=== PATIENT | female | born 2000 | race Caucasian/White ===

== ENCOUNTER → 2024-04-22 14:50 | Outpatient (BNVA) | payer OTHER, SELFPAY | PROVIDERS: Visit Provider Nurse Practitioner Women's Health | DX: N92.6 Irregular menstruation, unspecified (principal) | CPT/HCPCS: 82306; 83036; 83520; 83525; 84402; 84403; 84443; 85025; 86850; 86900 ==

== ENCOUNTER → 2024-04-30 14:19 | Outpatient (BNVA) | payer OTHER, SELFPAY | PROVIDERS: Visit Provider Nurse Practitioner Women's Health | DX: N92.6 Irregular menstruation, unspecified (principal) | CPT/HCPCS: 76830 ==

== ENCOUNTER → 2024-07-09 07:59 | Outpatient (BNVA) | payer OTHER, SELFPAY | PROVIDERS: Visit Provider Nurse Practitioner Women's Health | DX: N92.6 Irregular menstruation, unspecified (principal); N83.8 Other noninflammatory disorders of ovary, fallopian tube and broad ligament | CPT/HCPCS: 76830 ==

== ENCOUNTER → 2024-08-09 13:30 | Outpatient (BNVA) | payer OTHER, SELFPAY | PROVIDERS: Visit Provider Nurse Practitioner Women's Health | DX: N97.0 Female infertility associated with anovulation (principal); Z31.9 Encounter for procreative management, unspecified; E28.2 Polycystic ovarian syndrome | CPT/HCPCS: 84144 ==

== ENCOUNTER → 2024-09-19 09:50 | Outpatient (BNVA) | payer OTHER, SELFPAY | PROVIDERS: Visit Provider Nurse Practitioner Women's Health | DX: N97.0 Female infertility associated with anovulation (principal); N92.6 Irregular menstruation, unspecified; Z31.9 Encounter for procreative management, unspecified; E28.2 Polycystic ovarian syndrome | CPT/HCPCS: 84144 ==

== ENCOUNTER → 2024-11-04 15:15 | Outpatient (BNVA) | payer OTHER, SELFPAY | PROVIDERS: Visit Provider Nurse Practitioner Women's Health | DX: Z31.9 Encounter for procreative management, unspecified (principal); N97.0 Female infertility associated with anovulation | CPT/HCPCS: 84144 ==

== ENCOUNTER → 2024-11-11 13:16 | Outpatient (BNVA) | payer OTHER, SELFPAY | PROVIDERS: Visit Provider Nurse Practitioner Women's Health | DX: Z32.01 Encounter for pregnancy test, result positive (principal); N91.2 Amenorrhea, unspecified | CPT/HCPCS: 84702 ==

== ENCOUNTER → 2024-11-13 08:49 | Outpatient (BNVA) | payer OTHER, SELFPAY | PROVIDERS: Visit Provider Nurse Practitioner Women's Health | DX: N91.2 Amenorrhea, unspecified (principal) | CPT/HCPCS: 84702 ==

== ENCOUNTER → 2024-11-18 13:10 | Outpatient (BNVA) | payer OTHER, SELFPAY | PROVIDERS: Visit Provider Nurse Practitioner Women's Health | DX: Z34.90 Encounter for supervision of normal pregnancy, unspecified, unspecified trimester (principal) | CPT/HCPCS: 84702 ==

== ENCOUNTER 2024-12-09 12:45 | Outpatient (CLI) | payer OTHER, SELFPAY ==
--- NOTE | 2024-12-09 13:30 | US_ITS ---
WS: [id number] EARLY OBSTETRICAL ULTRASOUND (<14 WEEKS). HISTORY: Z32.01 - Encounter for test, result positive COMPARISON: None available. Single intrauterine gestational sac is identified. Cardiac activity at 151 BPM. [place]-rump length measures 1.2 cm which corresponds to a gestation of 7w3d. Normal-appearing yolk sac and amnion demonstrated. No subchorionic hemorrhage. No free fluid. Normal size ovaries with no mass. Ovaries are identified. No adnexal mass. US/US OB <= 14 weeks fetus [id number] IMPRESSION: 1. Single intrauterine gestation of 7w3d with an EDC of 07/25/2025. 2. Normal cardiac activity.
== END 2024-12-09 12:46 | disposition home or self-care (01) ==
LOC: RAD 12:46
PROVIDERS: PCP Nurse Practitioner Women's Health; Visit Provider Nurse Practitioner Women's Health
DX: Z32.01 Encounter for pregnancy test, result positive (principal)
CPT/HCPCS: 76801

== ENCOUNTER → 2024-12-11 13:15 | Outpatient (BNVA) | payer OTHER, SELFPAY | PROVIDERS: PCP Nurse Practitioner Women's Health; Visit Provider Nurse Practitioner Women's Health | DX: N97.0 Female infertility associated with anovulation (principal) | CPT/HCPCS: 81025 ==

== ENCOUNTER → 2025-01-06 14:41 | Outpatient (BNVA) | payer OTHER, SELFPAY | PROVIDERS: PCP Nurse Practitioner Women's Health; Visit Provider Nurse Practitioner Women's Health | DX: Z34.90 Encounter for supervision of normal pregnancy, unspecified, unspecified trimester (principal) | CPT/HCPCS: 80307; 82950; 84315; 84443; 85025; 86592; 86762; 86803; 86850; 86900; 87086; 87340; 87491; 87591; 87661; 87806 ==

== ENCOUNTER → 2025-02-10 13:39 | Outpatient (BNVA) | payer MEDICAID, SELFPAY | PROVIDERS: Visit Provider Nurse Practitioner Women's Health | DX: Z34.90 Encounter for supervision of normal pregnancy, unspecified, unspecified trimester (principal); Z34.00 Encounter for supervision of normal first pregnancy, unspecified trimester | CPT/HCPCS: 82105; 84315 ==